=== PATIENT | female | born 1995 | race Caucasian/White ===

== ENCOUNTER 2018-11-27 11:55 | Emergency (ER) | payer MEDICAID, OTHER ==
[~2018-11-27] VITALS: Ht 154.9 cm; Wt 71.3 kg
[~2018-11-27 11:55] MED LIST: PREN1TAB62 PO
[2018-11-27 12:04] VITALS: RESP 18; Ht 154.9 cm; Wt 71.3 kg
--- NOTE | 2018-11-27 15:45 | ERD ---
ER Documentation Chief Complaint Chief Complaint 7wks preg, clinic told pt no fhr about a week ago HPI 23-year-old female presents for evaluation of her . She is approximately 7 weeks by dates. Last week she was at her OBs office did an ultrasound and they were unable to visualize heart tones. They stated she may have a failed . She is uncertain of the follow-up. She feels like that baby may be moving is requesting a second opinion. She denies bleeding, pain, fevers, vomiting, additional symptoms. She is a G2 para 1. ROS All systems reviewed and are negative except as per history of present illness. Medications Home Meds Reported Medications Vit-Iron Fumarate-FA ( Vitamin Tablet) 1 Each Tablet, 1 EACH PO DAILY 11/11/13 Allergies Allergies: Coded Allergies: No Known Drug Allergies (Verified Allergy, Mild, 11/27/18) PMhx/Soc Medical and Surgical Hx: pt denies Medical Hx, pt denies Surgical Hx Hx Alcohol Use: No Hx Substance Use: No Hx Tobacco Use: No Smoking Status: Never smoker FmHx Family History: No diabetes, No coronary disease, No other Physical Exam Vitals Vital Signs Date Temp Pulse Resp B/P (MAP) Pulse Ox O2 O2 Flow FiO2 Time Delivery Rate 11/27/18 100.0 95 18 155/80 100 12:04 (105) Physical Exam Const: No acute distress Head: Atraumatic Eyes: Normal Conjunctiva ENT: Normal External Ears, Nose and Mouth. Neck: Full range of motion. No meningismus. Resp: Clear to auscultation bilaterally Cardio: Regular rate and rhythm, no murmurs Abd: Soft, non tender, non distended. Normal bowel sounds Skin: No petechiae or rashes Back: No midline or flank tenderness Ext: No cyanosis, or edema Neur: Awake and alert Psych: Normal Mood and Affect Result Diagram: 11/27/18 1403 Results 24 hrs Laboratory Tests Test 11/27/18 14:03 White Blood Count 5.6 10^3/ul Red Blood Count 4.96 10^6/ul Hemoglobin 13.9 g/dl Hematocrit 41.1 % Mean Corpuscular Volume 82.9 fl Mean Corpuscular Hemoglobin 28.0 pg Mean Corpuscular Hemoglobin Concent 33.8 g/dl Red Cell Distribution Width 13.2 % Platelet Count 316 10^3/UL Mean Platelet Volume 9.9 fl Immature Granulocytes % 0.200 % Neutrophils % 38.8 % Lymphocytes % 51.6 % Monocytes % 6.7 % Eosinophils % 2.2 % Basophils % 0.5 % Nucleated Red Blood Cells % 0.0 /100WBC Immature Granulocytes # 0.010 10^3/ul Neutrophils # 2.2 10^3/ul Lymphocytes # 2.9 10^3/ul Monocytes # 0.4 10^3/ul Eosinophils # 0.1 10^3/ul Basophils # 0.0 10^3/ul Nucleated Red Blood Cells # 0.0 10^3/ul Urine Color YELLOW Urine Clarity CLEAR Urine pH 6.0 Urine Specific [place] 1.013 Urine Ketones NEGATIVE mg/dL Urine Nitrite NEGATIVE mg/dL Urine Bilirubin NEGATIVE mg/dL Urine Urobilinogen NEGATIVE mg/dL Urine Leukocyte Esterase NEGATIVE Jamie/ul Urine Hemoglobin NEGATIVE mg/dL Urine Glucose NEGATIVE mg/dL Urine Total Protein NEGATIVE mg/dl Beta HCG, Quantitative 49033.0 mIU/ml Procedures/MDM Quantitative hCG is 55,357. CBC is normal in urine shows no significant abnormalities. Patient is Rh+. Pelvic ultrasound shows a single intrauterine at 6 weeks with visible pole and yolk sac. There is no appreciable heart tones. Presents with early without visible heart tones. Differential includes failed or missed , early normal . Current signs or symptoms do not suggest ectopic , surgical abdomen. She will be discharged home with OB follow-up. Recommending additional hCG check to confirm failed . She says return for fevers, bleeding, pain, new worsening symptoms. The patient was stable with no new complaints during the ER course. Clinically, there is no current evidence to suggest meningitis, sepsis, acute abdomen, pneumonia, stroke, acute coronary syndrome, pulmonary embolism, aortic dissection or any other emergent condition appearing to require further evaluation or hospitalization. Patient counseled regarding my diagnostic impression and care plan. Prior to discharge all questions answered. Pt agrees with treatment plan and understands strict return precautions. Pt is instructed to follow up with primary care provider within 24-48 hours. Precautionary instructions provided including instructions to return to the ER if not improving or for any worsening or changing symptoms or concerns. Departure Diagnosis: Primary Impression: Missed Condition: Stable Patient Instructions: Missed Miscarriage Additional Instructions: Suspect failed but recommend recheck of hormones in 2 days for confirmation. See OB this week for follow-up. Recheck otherwise for bleeding, fevers, new worsening symptoms. GINA CANNON MD Nov 27, 2018 15:45
[2018-11-27 15:53] VITALS: BP 122/59; PULSE 78
== END 2018-11-27 15:54 | disposition home or self-care (01) ==
LOC: FTE 11:55
DX: O02.1 Missed abortion (principal)
CPT/HCPCS: 76801; 76817; 81003; 84702; 85025; 86900; 86901; Z7502

== ENCOUNTER 2018-12-06 00:57 | Emergency (ER) | payer OTHER ==
[~2018-12-06] VITALS: Ht 154.9 cm; Wt 70.4 kg
[2018-12-06 01:02] VITALS: RESP 16; Ht 154.9 cm; Wt 70.4 kg
--- NOTE | 2018-12-06 01:57 | ERD ---
ER Documentation Chief Complaint Chief Complaint vag bleed with pain 8/10; took meds to expel fetus at 6pm HPI Patient is a 23-year-old female presents to the ED with complaints of vaginal spotting and suprapubic cramping pain status post medical earlier today. Patient had a confirmed missed at approximately 7 weeks gestation a few weeks and saw her HEALTH THERAPIST today for an induced with Misoprostol. Patient states she felt fine afterwards but started develop vaginal spotting and suprapubic pain approximately 1 hour after taking the mediation. Patient states her pain is localized to her mid suprapubic region and rated as 8 out of 10 in intensity. She states she passed a clot prior to coming here. She denies any nausea, vomiting, fevers, chills, back pain, dysuria, frequency or urinary complaints. She denies any other symptoms. ROS All systems reviewed and are negative except as per history of present illness. Medications Home Meds Active Scripts Acetaminophen* (Tylenol*) 325 Mg Tablet, 1 TAB PO Q6 PRN for MILD PAIN(1-3)OR EL EVATED TEMP, #20 TAB Prov:SHIRA BAH PA-C 12/06/18 Reported Medications Vit-Iron Fumarate-FA ( Vitamin Tablet) 1 Each Tablet, 1 EACH PO DAILY 11/11/13 Allergies Allergies: Coded Allergies: No Known Drug Allergies (Verified Allergy, Mild, 11/27/18) PMhx/Soc Hx Alcohol Use: No Hx Substance Use: No Hx Tobacco Use: No Physical Exam Vitals Vital Signs Date Temp Pulse Resp B/P (MAP) Pulse Ox O2 O2 Flow FiO2 Time Delivery Rate 12/06/18 69 122/64 04:07 (83) 12/06/18 97.4 76 16 137/83 99 01:02 (101) Physical Exam Const: No acute distress Head: Atraumatic Eyes: Normal Conjunctiva ENT: Normal External Ears, Nose and Mouth. Neck: Full range of motion. No meningismus. Resp: Clear to auscultation bilaterally Cardio: Regular rate and rhythm, no murmurs Abd: Soft, + mid suprapubic tenderness to palpation. Normal bowel sounds Skin: No petechiae or rashes Back: No midline or flank tenderness Ext: No cyanosis, or edema Neur: Awake and alert Psych: Normal Mood and Affect Result Diagram: 12/06/18 0215 Results 24 hrs Laboratory Tests Test 12/06/18 02:14 12/06/18 02:15 POC Beta HCG, Qualitative POSITIVE White Blood Count 6.3 10^3/ul Red Blood Count 4.81 10^6/ul Hemoglobin 13.5 g/dl Hematocrit 40.5 % Mean Corpuscular Volume 84.2 fl Mean Corpuscular Hemoglobin 28.1 pg Mean Corpuscular Hemoglobin Concent 33.3 g/dl Red Cell Distribution Width 12.8 % Platelet Count 287 10^3/UL Mean Platelet Volume 9.6 fl Immature Granulocytes % 0.300 % Neutrophils % 49.7 % Lymphocytes % 39.4 % Monocytes % 7.7 % Eosinophils % 2.4 % Basophils % 0.5 % Nucleated Red Blood Cells % 0.0 /100WBC Immature Granulocytes # 0.020 10^3/ul Neutrophils # 3.1 10^3/ul Lymphocytes # 2.5 10^3/ul Monocytes # 0.5 10^3/ul Eosinophils # 0.2 10^3/ul Basophils # 0.0 10^3/ul Nucleated Red Blood Cells # 0.0 10^3/ul Urine Color YELLOW Urine Clarity SLIGHTLY CLOUDY Urine pH 5.0 Urine Specific [place] 1.024 Urine Ketones 1+ mg/dL Urine Nitrite NEGATIVE mg/dL Urine Bilirubin NEGATIVE mg/dL Urine Urobilinogen NEGATIVE mg/dL Urine Leukocyte Esterase NEGATIVE Jamie/ul Urine Microscopic RBC > 182 /HPF Urine Microscopic WBC 2 /HPF Urine Bacteria FEW /HPF Urine Mucus MODERATE /HPF Urine Hemoglobin 2+ mg/dL Urine Glucose NEGATIVE mg/dL Urine Total Protein NEGATIVE mg/dl Current Medications Medications Dose Sig/Lea Start Time Status Last (Trade) Ordered Route PRN Stop Time Admin Dose Reason Admin 325 mg ONCE ONCE 12/06/18 DC 12/06/18 Acetaminophen PO 04:00 12/06/18 04:03 (Tylenol 04:01 Tab) Procedures/MDM EMERGENT LABS AND DIAGNOSTIC STUDIES: Lab Results above were reviewed and interpreted by me as below. CBC: no e/o of systemic infection or severe anemia Urine: RBC > 182, consistent with vaginal bleeding. No significant pyuria Beta hcg: positive Otherwise within normal limits, unremarkable or as documented above. Radiology Results as interpreted by Radiology: PROCEDURE: Pelvic ultrasound color-flow Doppler of the adnexa. CLINICAL INDICATION: Vaginal bleeding. TECHNIQUE: Multiple sagittal, oblique and transverse real time images were obtained of the lower abdomen and pelvis using a transabdominal as well a transvaginal approach. Color-flow Doppler of the adnexa was performed. COMPARISON: Pelvic ultrasound 11/27/2018 FINDINGS: The uterus is enlarged measuring 10.61 x 5.76 x 6.81 cm. Previous gestational sac is no longer demonstrated. The uterus is inhomogeneous and thickened with a maximal AP diameter of the 2.22 cm. Myometrial echoes are homogeneous without focal lesions. Ovaries are normal in size with the right measuring 3.15 x 2.11 x 8.38 cm and the left measuring 3.33 x 2.14 x 2.29 cm. No ovarian masses. Flow to both ovaries without ultrasonic evidence of ovarian torsion. No adnexal masses or free fluid. IMPRESSION: 1. Enlarged uterus with inhomogeneous thickened endometrium but no focal lesions. Previous gestational sac no longer present. 2. Normal size ovaries without masses and no ultrasonic evidence of ovarian torsion. 3. No adnexal masses or free fluid. Nursing Notes Reviewed. Previous Medical Records requested via the Electronic Health Record. 23 yo F presents with vaginal spotting and pelvic pain status post medical earlier today. She has no signs of an acute surgical abdomen on physical exam. She is afebrile with stable vital signs. CBC without any signs of infection or anemia. UA consistent with vag bleeding, otherwise unremarkable. Pelvic US negative for any retained products of conception. Discussed these results with pt at bedside. I discussed that lower abdominal cramping and vaginal passage of tissue and blood are expected after such a procedure. She was given a prescription for Tylenol to take as needed for pain and also given a c opy of her results. She has a follow up with OBGYN next week. She was told to return to the ED for any worsening bleeding or pain, fevers, vomiting or any other symptoms. I have low suspicion for infected/retained POC, infection, placenta accreta or any other emergent process. Pt is stable for outpatient follow up and management with her OBGYN. SPECIALIST FOLLOW UP RECOMMENDED: OBGYN Departure Diagnosis: Primary Impression: Status post drug-induced Additional Impressions: Vaginal bleeding Suprapubic cramping Condition: Stable Patient Instructions: VBPG Referrals: HEALTH THERAPIST REFERRAL LIST Additional Instructions: See your OBGYN as scheduled next week. Take Tyelnol or Motrin as needed for pain. Return for any new or worsening symptoms. SHIRA BAH PA-C Dec 06, 2018 01:57
[2018-12-06] MEDS ORDERED: ACET325T33 PO (03:58)
[2018-12-06] MEDS ORDERED: ACETAMINOPHEN 325 MG TAB PO ONE (04:00)
[2018-12-06 04:07] VITALS: BP 122/64; PULSE 69
== END 2018-12-06 04:08 | disposition home or self-care (01) ==
LOC: FTE 00:57
DX: O04.89 (Induced) termination of pregnancy with other complications (principal); N93.9 Abnormal uterine and vaginal bleeding, unspecified; R10.30 Lower abdominal pain, unspecified; R10.2 Pelvic and perineal pain
CPT/HCPCS: 36415; 76856; 81001; 81025; 85025; Z7502; Z7610